=== PATIENT | male | born 1965 | race Caucasian/White ===

== ENCOUNTER 2022-06-23 23:51 | Emergency (ER) | payer BC ==
[2022-06-23] MEDS ORDERED: Amiodarone 150 MG/3 ML SDV IV ONE (23:52)
[2022-06-23] MEDS ORDERED: EPINEPHrine 1:10,000 1 MG/10 ML Syringe IV ONE (23:52)
[2022-06-23] MEDS ORDERED: Sodium Bicarbonate 8.4% 50 MEQ/50 ML Syringe IV ONE (23:52)
[2022-06-23] MEDS ORDERED: Calcium Gluconate 10% 1 GM/10 ML SDV IV ONE (23:52)
== END 2022-06-23 23:52 | disposition expired ==
LOC: DL.ED 23:51
DX: I46.9 Cardiac arrest, cause unspecified (principal); Z91.041 Radiographic dye allergy status; Z79.82 Long term (current) use of aspirin; Z79.899 Other long term (current) drug therapy
CPT/HCPCS: 31500; 92950; 99285; 99285-25; J0171; J0282; J0610; J3490